=== PATIENT | female | born 1970 | race Caucasian/White ===

== ENCOUNTER 2023-07-17 01:41 | Emergency (ER) | payer OTHER, SELFPAY ==
[2023-07-17] VITALS (7 sets, daily range): BP systolic 119–149; BP diastolic 77–94; PULSE 68–77; RESP 16; TEMP 36.8; O2SAT 97–100; BMI 28.1
--- NOTE | 2023-07-17 03:04 | ED.GENADULT ---
HPI - General Adult General Chief complaint: Arrhythmia/Palpitations Stated complaint: Abdominal Pain Time Seen by Provider: 07/17/23 02:31 Source: patient and family Mode of arrival: EMS History of Present Illness HPI narrative: 52-year-old female with a history of bradycardia, currently undergoing cardiac workup presents the emergency department because she felt lightheaded. She has a history of intermittent bradycardia and did have a Holter monitor which showed very short runs of nonsustained V-tach during her the time she had her Holter monitor on. She has followed up with Cardiology and they have referred her to electrophysiology but are not overly concerned. She was told that if she has persistent lightheadedness, she should come to the emergency department. This evening, she went out to eat with her , had a greasy burger and a beer and a half. She reports that about 2 hours after eating, she started having some mild right upper quadrant tenderness. She has soon that she was having a mild gallbladder episode and did not think much of it. About an hour after that, she started having sudden onset of cramping in her left calf which she attributed to a charley horse. During the episode of charley horse, she started to feel lightheaded, this lasted just a few minutes. She tried drinking a little bit of water but the spasm persisted. She called EMS. Symptoms disappeared after just a few minutes and she felt well upon EMS arrival. Symptoms have not returned. She is not overly worried about the gallbladder area pain. She has no fever, no nausea vomiting and symptoms have fully improved. She does not eat fattening foods very often. She does not think this needs further workup. The charley horse symptoms have not returned. She does not have a history of electrolyte abnormalities. No trauma or injury. She is able to monitor her heart rate on her Apple watch. Heart rate was not severely bradycardic during this episode. Was normal for EMS as well. Blood pressure has now improved upon a few minutes rest in the ED. she has no additional concerns at this time but was just told to get checked out if she has lightheadedness because of her history of bradycardia. Past medical history reviewed. Allergies to sulfa and Compazine. No home medications. Bradycardia reviewed. I can also review the cardiology consult note dated 07/07/2023 in her align a record. ROS is notable for the GI, musculoskeletal, cardiac symptoms as above. Otherwise denies times 12 systems. Related Data Home Medications Medication Instructions Recorded Confirmed No Known Home Medications 07/17/23 07/17/23 Allergies Allergy/AdvReac Type Severity Reaction Status Date / Time prochlorperazine AdvReac Verified 07/17/23 02:02 [From Compazine] Sulfa (Sulfonamide AdvReac Verified 07/17/23 02:02 Antibiotics) [facility] Social History Smoking Status: Never smoker Do you use any of these nicotine containing products: None How often do you have a drink containing alcohol: monthly or less How many standard drinks containing alcohol do you have on a typical day: 1 or 2 How often do you have six or more drinks on one occasion: Never AUDIT-C Alcohol total score: 1 Non-prescribed substance use: denies use Exam Const: Vital Signs, click to edit/add: Vital Signs - 24 hr 07/17/23 01:54 07/17/23 02:15 07/17/23 02:30 Temperature 98.2 F Pulse Rate [Left P ulse Oximeter] 77 72 75 Respiratory Rate 16 16 16 Blood Pressure [Ri ght Upper Arm] 149/94 H 125/82 120/80 Pulse Oximetry 97 97 97 Oxygen Delivery Me thod Room Air Room Air Room Air 07/17/23 02:45 07/17/23 03:00 07/17/23 03:15 Temperature 98.2 F Pulse Rate [Left P ulse Oximeter] 72 71 68 Respiratory Rate 16 16 16 Blood Pressure [Ri ght Upper Arm] 121/77 124/80 119/79 Pulse Oximetry 100 99 99 Oxygen Delivery Me thod Room Air Room Air Room Air 07/17/23 03:30 Temperature Pulse Rate [Left P ulse Oximeter] 72 Respiratory Rate 16 Blood Pressure [Ri ght Upper Arm] 121/77 Pulse Oximetry 99 Oxygen Delivery Me thod Room Air Documenting provider has reviewed patient's vital signs: yes Common normals: no apparent distress General appearance: cooperative, comfortable and well kempt HENMT: Common normals: normocephalic and head/scalp atraumatic Head and scalp: normocephalic and atraumatic Mouth: oral and palatal mucosa normal Throat: posterior oropharynx normal Eye: Common normals: conjunctivae normal General eye: normal appearance of both eyes Conjunctiva: conjunctiva(e) normal Neck & C-Spine: Common normals: full ROM and no lymphadenopathy Resp: Common normals: normal respiratory effort, no use of accessory muscles and clear to auscultation bilaterally Effort & inspection: able to speak in complete sentences Auscultation: clear to auscultation bilaterally Cardio: Common normals: regular rate, regular rhythm, S1 normal heart sound, S2 normal heart sound and no murmurs Rate: regular rate Rhythm: regular rhythm Heart sounds: S1 normal and S2 normal GI: Common normals: Normal to inspection, nondistended, normoactive bowel sounds present, soft to palpation, non-tender, no hepatosplenomegaly and no masses Inspection: normal to inspection Palpation: soft and no hepatosplenomegaly Extremity: Common normals: normal to inspection, full ROM, normal capillary refill and no pedal edema Neuro: Speech: speech normal Motor exam: strength 5/5 throughout and no movement abnormalities noted Psych: Common normals: thought process normal Appearance: well kempt Attitude: engaged Mood and affect: euthymic mood Thought process: normal thought process Insight: insight good Judgement: judgment good Skin: Common normals: no rashes or lesions noted General skin exam: no rashes or lesions noted Course Vital Signs Vital signs: Initial Vital Signs Temperature 98.2 F 07/17/23 01:54 Temperature Source Temporal Artery Scan 07/17/23 01:54 Pulse Rate 77 07/17/23 01:54 Respiratory Rate 16 07/17/23 01:54 Blood Pressure 149/94 H 07/17/23 01:54 Blood Pressure Mean 112 H 07/17/23 01:54 Blood Pressure Position Sitting 07/17/23 01:54 Pulse Oximetry 97 07/17/23 01:54 Oxygen Delivery Method Room Air 07/17/23 01:54 Vital Signs Temperature 98.2 F 07/17/23 01:54 Pulse Rate 77 07/17/23 01:54 Respiratory Rate 16 07/17/23 01:54 Blood Pressure 149/94 H 07/17/23 01:54 Pulse Oximetry 97 07/17/23 01:54 Oxygen Delivery Method Room Air 07/17/23 01:54 Temperature 98.2 F 07/17/23 03:15 Pulse Rate 72 07/17/23 03:30 Respiratory Rate 16 07/17/23 03:30 Blood Pressure 121/77 07/17/23 03:30 Pulse Oximetry 99 07/17/23 03:30 Oxygen Delivery Method Room Air 07/17/23 03:30 Medical Decision Making MDM Narrative Medical decision making narrative: Lightheaded episode during episode of pain, likely vagal in nature. No signs of persistent arrhythmia. Are recommend basic workup including EKG, troponin, D-dimer, liver enzymes due to right upper quadrant pain. Calf spasm has resolved, likely simple charley horse. Likely exacerbated by recent alcohol intake. No treatment needed, no signs of DVT. Patient will be monitored on threat monitoring analyst. Currently asymptomatic. Will likely be able to be discharged home with scheduled EP follow-up as already planned. Lab Data Lab results reviewed: Yes I reviewed the patient's lab results Lab results narrative: Labs reassuring. No signs of blood clot, heart disease, infection, biliary obstruction or other abnormality. Labs: Lab Results 07/17/23 07/17/23 Range/Units 03:15 03:20 WBC 6.60 (4.50-11.00) K/uL RBC 4.32 (4.00-5.20) m/uL Hgb 12.8 (12.0-16.0) gm/dL Hct 38.1 (33.0-51.0) % MCV 88 (80-100) fL MCH 30 (26-34) pg MCHC 34 (32-36) gm/dL RDW Coeff of Klever 12.0 (11.5-15.5) % Plt Count 285 (140-440) K/uL Neut % (Auto) 66.8 (42.0-72.0) % Lymph % (Auto) 21.1 (20-44) % [place] % (Auto) 10.5 (0.0-11.0) % Eos % (Auto) 1.1 (0.0-7.0) % Baso % (Auto) 0.3 (0.0-3.0) % Neut # (Auto) 4.42 (1.7-7.0) K/uL Lymph # (Auto) 1.39 (0.90-2.90) K/uL [place] # (Auto) 0.70 (0.00-0.90) K/UL Eos # (Auto) 0.07 (0.00-0.50) K/uL Baso # (Auto) 0.02 (0.00-0.30) K/uL Abs Immat Gran (auto) 0.01 (0.00-0.30) K/uL Imm/Tot Granulo (auto) 0.2 % D-Dimer Quant (PE/DVT) < 0.27 (0.00-0.50) ug/ml Sodium 138 (135-149) mmol/L Potassium 4.0 (3.6-5.1) mmol/L Chloride 103 (96-114) mmol/L Carbon Dioxide 27 (20-32) mmol/L Anion Gap 8 (7-15) mEq/L BUN 14 (7-30) mg/dL Creatinine 0.8 (0.5-1.5) mg/dL Estimated Creat Clear 84.87 Estimated GFR 90 ml/min Glucose 112 (60-115) mg/dL Calcium 9.7 (8.4-10.6) mg/dL Total Bilirubin 0.5 (0.1-1.5) mg/dL AST 33 (12-35) U/L ALT 29 (4-35) U/L Alkaline Phosphatase 63 (40-150) U/L Troponin I < 0.01 L (0.01-0.04) ng/mL C-Reactive Protein < 0.5 L (0.5-1.0) mg/dL NT-Pro-B Natriuret Pep 51 pg/mL Total Protein 7.4 (6.0-8.3) g/dL Albumin 4.3 (3.3-5.0) g/dL Lab Acknowledgement Test Added POC Troponin I 0.00 L (0.01-0.04) ng/ml ECG Data Attestation: I personally reviewed and interpreted this ECG as follows: Prior ECG tracings: not available for review Interpretation: Normal sinus rhythm, rate of 73. Varies between 70 and 85 on the monitor during our exam. Computer interpreting as an incomplete right bundle branch block which I also appreciate. Uncertain of chronicity. No obvious ischemic changes, no significant ST or T-wave abnormalities. Discharge Plan Discharge Clinical Impression: Pre-syncope Patient Disposition: Home w/ Parent or Adult Condition: Improved Instructions: Near Syncope (ED) Additional Instructions: I am glad that you are feeling better. I suspect that toncuong's episode of lightheadedness was triggered by pain from the calf cramp and will refer to as a ?vagal episode?. This is when you get a sudden influx of nervous stimulation from pain, sudden diarrhea, stress or other inputs. This causes a drop in heart rate and blood pressure and makes you lightheaded. Based on the fact that you already have some low pulse issues, you will be more prone to this. Thankfully, your heart is in normal rhythm. Continue your current plan to follow up with the smooth and burr worker composites. I agree with you that you likely had a mild gallbladder attack tonight. We are not seeing any signs of infection or obstruction. If you continue to have episodes, I would recommend an ultrasound and HIDA scan to workup further. Calf cramps can be uncomfortable but are usually not associated with any major disease. The blood test to look for blood clot were negative. I do not recommend that we look into this further. If he continue to have problems with this, I would discuss with primary care provider. Prescriptions: No Action No Known Home Medications Follow Up/Referrals: Yessenia Bell MD [Primary Care Provider] - Stand Alone Forms: [employer] Info Instructions
[2023-07-17 03:29] LABS: Basophils Absolute Auto 0.02 K/uL (0.00-0.30); Basophils Percent Auto 0.3 % (0.0-3.0); Eosinophils Absolute Auto 0.07 K/uL (0.00-0.50); Eosinophils Percent Auto 1.1 % (0.0-7.0); Hematocrit 38.1 % (33.0-51.0); Hemoglobin* 12.8 gm/dL (12.0-16.0); Immature Granulocytes Abs Auto 0.01 K/uL (0.00-0.30); Immature Granulocytes Pct Auto 0.2 %; Lymphocytes Absolute Auto 1.39 K/uL (0.90-2.90); Lymphocytes Percent Auto 21.1 % (20-44); Mean Corpuscular HGB Conc 34 gm/dL (32-36); Mean Corpuscular Hemoglobin 30 pg (26-34); Mean Corpuscular Volume 88 fL (80-100); Monocytes Percent Auto 10.5 % (0.0-11.0); Neutrophils Absolute Auto 4.42 K/uL (1.7-7.0); Neutrophils Percent Auto 66.8 % (42.0-72.0); Platelet Count* 285 K/uL (140-440); Red Blood Count 4.32 m/uL (4.00-5.20)
[2023-07-17 03:31] LABS: Slide Review Reflex No
[2023-07-17 03:41] LABS: Albumin* 4.3 g/dL (3.3-5.0); Chloride* 103 mmol/L (96-114)
[2023-07-17 03:42] LABS: Sodium* 138 mmol/L (135-149)
[2023-07-17 03:44] LABS: Bilirubin Total* 0.5 mg/dL (0.1-1.5); Creatinine* 0.8 mg/dL (0.5-1.5); Est. Creatinine Clearance* 84.87; Estimated Glomerular Filt Rate 90 ml/min
[2023-07-17 03:45] LABS: Alanine Aminotransferase* 29 U/L (4-35); Alkaline Phosphatase* 63 U/L (40-150); Anion Gap 8 mEq/L (7-15); Aspartate Amino Transferase* 33 U/L (12-35); Blood Urea Nitrogen* 14 mg/dL (7-30); Calcium* 9.7 mg/dL (8.4-10.6); Carbon Dioxide* 27 mmol/L (20-32); Glucose* 112 mg/dL (60-115); Total Protein* 7.4 g/dL (6.0-8.3)
[2023-07-17 03:48] LABS: C Reactive Protein* < 0.5 mg/dL (0.5-1.0)
[2023-07-17 03:49] LABS: D Dimer Quantitative* < 0.27 ug/ml (0.00-0.50)
[2023-07-17 03:56] LABS: NT Pro B Type NatriureticPept* 51 pg/mL
[2023-07-17 03:57] LABS: Troponin I* < 0.01 ng/mL (0.01-0.04)
== END 2023-07-17 04:09 | disposition home or self-care (01) ==
PROVIDERS: Emergency Provider Family Medicine; PCP Family Medicine
DX: R55 Syncope and collapse (principal)
CPT/HCPCS: 36415; 80053; 83880; 84484; 85025; 85379; 86140; 93005; 99284; A0425; A0427

== ENCOUNTER 2025-08-04 07:18 | Outpatient (CLI) | payer BC, SELFPAY ==
--- NOTE | 2025-08-04 08:41 | P.ANES_ITS ---
Anesthesia Charges Start Date/Time Anesthesia Start Date: 08/04/25 Anesthesia Start Time: 08:10 Stop Date/Time Anesthesia Stop Date: 08/04/25 Anesthesia Stop Time: 08:40 Coding CPT Codes CPT Codes: ANES LWR INTST SCR COLSC - 88618 ([id number]) P3 - PATIENT W/SEVERE SYS DISEASE, QX - OVEN HEATER HELPER SVC W/ MD MED DIRECTION, QK - WAD PRINTING MACHINE OPERATOR 2-4 CNCRNT ANES PROC
--- NOTE | 2025-08-04 08:41 | W.ANESCHARGE ---
Anesthesia Charges Start Date/Time Anesthesia Start Date: 08/04/25 Anesthesia Start Time: 08:10 Stop Date/Time Anesthesia Stop Date: 08/04/25 Anesthesia Stop Time: 08:40 Coding CPT Codes CPT Codes: ANES LWR INTST SCR COLSC - 95202 ([id number]) P3 - PATIENT W/SEVERE SYS DISEASE, QX - DESKTOP SUPPORT ENGINEER SVC W/ MD MED DIRECTION, QK - CONCRETE BLOCK LAYER 2-4 CNCRNT ANES PROC
--- NOTE | 2025-08-04 09:08 | P.ANES_ITS ---
Anesthesia Charges Start Date/Time Anesthesia Start Date: 08/04/25 Anesthesia Start Time: 08:10 Stop Date/Time Anesthesia Stop Date: 08/04/25 Anesthesia Stop Time: 08:40 Coding CPT Codes CPT Codes: ANES LWR INTST SCR COLSC - 30765 ([id number]) QK - NETWORK SUPPORT MANAGER 2-4 CNCRNT ANES PROC, QX - FOUNDER & CEO SVC W/ MED DIRECTION, P3 - PATIENT W/SEVERE SYS DISEASE
--- NOTE | 2025-08-04 09:08 | W.ANESCHARGE ---
Anesthesia Charges Start Date/Time Anesthesia Start Date: 08/04/25 Anesthesia Start Time: 08:10 Stop Date/Time Anesthesia Stop Date: 08/04/25 Anesthesia Stop Time: 08:40 Coding CPT Codes CPT Codes: ANES LWR INTST SCR COLSC - 15497 ([id number]) QK - CHANNEL ROUGHER 2-4 CNCRNT ANES PROC, QX - TODDLER TEACHER SVC W/ MED DIRECTION, P3 - PATIENT W/SEVERE SYS DISEASE
== END 2025-08-04 07:19 | disposition home or self-care (01) ==
LOC: OP CLINIC 07:21
PROVIDERS: PCP Family Medicine; Visit Provider Internal Medicine Gastroenterology
DX: Z12.11 Encounter for screening for malignant neoplasm of colon (principal)
CPT/HCPCS: 00812; 45378; J2704